=== PATIENT | male | born 1945 | race Caucasian/White ===

== ENCOUNTER 2018-06-16 15:40 | Inpatient (IN) | payer OTHER ==
[~2018-06-16] VITALS: Ht 167.6 cm; Wt 87.5 kg
[~2018-06-16 15:40] MED LIST: ACETAMINOPHEN325 M1 PO; ACTOPLUS MET 11 EAC1 PO; ACTOS 30 MG TAB30 M1 PO; ACTOS 30 MG TAB30 MG PO; AMITRIPTYLINE H10 M3 PO; ASPIR 8181 MG PO; ASPIRIN EC325 M1 PO; ASPIRIN EC81 M1 PO; ASPIRIN325 PO; BUDEPRION SR150 MG PO; BUPROBAN150 MG PO; BUPROPION HCL150 M1 PO; BYSTOLIC 5 MG5 M1 PO; COUMADIN 2.5MG2.5 M1 PO; DEMADEX10 MG PO; FERREX-150 PLU150 MG PO; FERROUS GLUCON325 M4 PO; FERROUS SULFAT325 MG PO; FISH OIL 1,0001 EAC5 PO; FISH OIL300 MG PO; GLUCOTROL10 MG PO; GLUCOTROL5 MG PO; IRON159 MG PO; IRON18 M1 PO; IRON325 PO; LIPITOR40 MG PO; LISINOPRIL10 MG PO; LORTAB 5 MG/5001 TA1 PO; LORTAB 5-500 T1 EAC1 PO; TENORMIN50 MG PO; TRAMADOL 50 MG50 MG PO; VITAMIN D1000 UNIT PO; WELLBUTRIN SR150 MG PO
[2018-06-16 15:41] VITALS: BP 155/73
[2018-06-16] MEDS ORDERED: NORVASC5 M1 PO (15:47)
[2018-06-16 19:12] VITALS: BP 132/59
[2018-06-16 19:28] LABS: HEMATOCRIT 37.7 % (42.0-52.0); HEMOGLOBIN 12.7 gm/dL (14.0-18.0); MCH 31.7 pg (26.0-34.0); MCHC 33.6 g/dL (28.0-37.0); MCV 94.1 fL (80.0-100.0); RBC 4.01 mil/uL (4.50-6.00); RDW 13.9 % (10.5-14.5); WBC 12.4 thou/uL (4.0-11.0)
[2018-06-16 19:35] LABS: CREATININE 2.2 mg/dL (0.7-1.3); POTASSIUM 4.7 mmol/L (3.5-5.1)
[2018-06-16 19:39] VITALS: BP 132/59
[2018-06-16 20:00] VITALS: BP 136/53
[2018-06-16 20:39] VITALS: BP 143/62
[2018-06-16] MEDS ORDERED: TRADJENTA5 MG (21:26)
[2018-06-17 05:32] VITALS: BP 126/53
[2018-06-17 08:07] VITALS: BP 131/53
[2018-06-17 10:57] VITALS: BP 131/53
[2018-06-17 16:15] VITALS: BP 131/53
[2018-06-17 16:45] VITALS: BP 122/55
[2018-06-17 19:51] VITALS: BP 124/46
[2018-06-18 08:00] VITALS: BP 134/46
[2018-06-18 16:35] VITALS: BP 110/62
[2018-06-18 20:05] VITALS: BP 125/67
[2018-06-19 07:40] VITALS: BP 121/62
[2018-06-19 09:34] VITALS: BP 121/62
[2018-06-19] MEDS ORDERED: LIDOPATCH1 EACH TRANSDERM (09:46)
== END 2018-06-19 19:32 | DRG 206 ==
LOC: ER 15:40 → 4W 18:53 → EROBS 18:53 → SICU 18:53 → 4W 20:04 → 4E 06-17 16:35 → SICU 06-18 18:58
PROVIDERS: Emergency Medicine; Nurse Practitioner Acute Care
DX: S22.31XA Fracture of one rib, right side, initial encounter for closed fracture (principal); S32.511A Fracture of superior rim of right pubis, initial encounter for closed fracture; N18.4 Chronic kidney disease, stage 4 (severe); F32.9 Major depressive disorder, single episode, unspecified; E78.00 Pure hypercholesterolemia, unspecified; E11.51 Type 2 diabetes mellitus with diabetic peripheral angiopathy without gangrene; D50.9 Iron deficiency anemia, unspecified; I12.9 Hypertensive chronic kidney disease with stage 1 through stage 4 chronic kidney disease, or unspecified chronic kidney disease; E78.5 Hyperlipidemia, unspecified; E11.22 Type 2 diabetes mellitus with diabetic chronic kidney disease; W10.8XXA Fall (on) (from) other stairs and steps, initial encounter; Y93.89 Activity, other specified; Y92.89 Other specified places as the place of occurrence of the external cause; Y99.8 Other external cause status; Z95.820 Peripheral vascular angioplasty status with implants and grafts; Z88.8 Allergy status to other drugs, medicaments and biological substances; Z87.891 Personal history of nicotine dependence; Z79.82 Long term (current) use of aspirin; Z79.899 Other long term (current) drug therapy
CPT/HCPCS: 10040; 10783; 15002